=== PATIENT | female | born 1980 | race Two or more races ===

== ENCOUNTER → 2022-12-21 | Emergency (ER) | payer OTHER ==
[~2022-12-21] VITALS: Ht 157.5 cm; Wt 81.6 kg
== END | disposition home or self-care (01) ==
LOC: ER 11:31 → EDBD 11:31 → ER 12:08
DX: S93.401A Sprain of unspecified ligament of right ankle, initial encounter (principal); S90.31XA Contusion of right foot, initial encounter; X58.XXXA Exposure to other specified factors, initial encounter; Y93.89 Activity, other specified; Y92.832 Beach as the place of occurrence of the external cause; Y99.9 Unspecified external cause status; Z88.6 Allergy status to analgesic agent; Z88.8 Allergy status to other drugs, medicaments and biological substances